=== PATIENT | female | born 1975 | race Caucasian/White ===

== ENCOUNTER 2016-10-03 11:32 | Emergency (ER) | payer OTHER ==
[2016-10-03] MEDS ORDERED: NS 1,000 ML IV ONE ×2 (11:48→12:00)
[2016-10-03] MEDS ORDERED: KETOROLAC 30 MG/1 ML SDV IVP ONE (12:00)
--- NOTE | 2016-10-03 12:00 | EDPHY ---
H & P Time Seen by Provider: 10/03/16 11:48 HPI/ROS: CHIEF COMPLAINT: Fever, back pain, dysuria HISTORY OF PRESENT ILLNESS: Patient is a 41-year-old female with a history of interstitial cystitis and endometriosis who presents to the emergency department with multiple complaints. Her symptoms started this morning upon waking. She noticed bilateral back pain and bilateral groin pain. This is moderate. She states she developed a fever to 101.4. This improved by taking medication. She has had dysuria and frequency. She also describes urgency. No hematuria. No nausea or vomiting. REVIEW OF SYSTEMS: My complete review of systems is negative except as mentioned in the HPI. Past Medical/Surgical History: Includes interstitial cystitis, endometriosis Past surgical history: Hysterectomy this year Social history: The patient does not smoke Smoking Status: Never smoked Physical Exam: Vitals noted. 37.2, heart rate elevated 127. GENERAL: Well-appearing, in no acute distress, alert. HEENT: Eyes normal to inspection, normal pharynx, no signs of dehydration. NECK: No thyromegaly, no lymphadenopathy, supple. RESPIRATORY: Clear to auscultation bilaterally, no rales, rhonchi or wheezing. CVS: tachycardia with regular rhythm, no rubs, murmurs, or gallops. ABDOMEN: Soft, left lower quadrant and suprapubic tenderness to palpation with no rebound or guarding, nondistended, no organomegaly. BACK: Normal to inspection, no CVA tenderness. SKIN: Normal color, no rash, warm, dry. No pallor. EXTREMITIES: No pedal edema, no calf tenderness, no Homans sign or cords, no joint swelling. NEURO/PSYCH: Alert and oriented, normal mood and affect, normal motor sensory exam. Constitutional: Initial Vital Signs Temperature (C) 37.2 C 10/03/16 11:37 Heart Rate 127 H 10/03/16 11:37 Respiratory Rate 22 H 10/03/16 11:37 Blood Pressure 133/108 H 10/03/16 11:37 O2 Sat (%) 92 10/03/16 11:37 O2 Delivery Mode Room Air Allergies/Adverse Reactions: Sulfa (Sulfonamide Antibiotics) Allergy (Verified 10/03/16 11:36) Home Medications: Medication Instructions Recorded Amlodipine Besylate 10/03/16 Lexapro 10/03/16 Synthroid 10/03/16 Medical Decision Making - Diagnostics Imaging Results: Imaging Impressions Abdomen/Pelvis CT 10/03/16 12:43 Impression: 1. Left lower lobe pneumonia. 2. No nephrolithiasis or hydronephrosis. 3. Benign left adrenal cortical adenoma measuring 1.6 x 1.1 cm. 4. Small fat-containing periumbilical abdominal wall hernia. Attention: This CT examination is specifically designed to evaluate patients who are clinically suspected of having acute obstructive uropathy. This examination does not use radiographic contrast, and as such, provides only a limited evaluation of the abdomen, pelvis and retroperitoneum. If there is further clinical suspicion for pathological conditions other than obstructive uropathy, a complete CT evaluation of the abdomen and pelvis utilizing intravenous, oral, and rectal contrast should be considered. Findings and recommendations discussed with Emergency Department physician, Sameera Gaston at 1330 hour, 10/03/2016. Final report concurs with initial preliminary interpretation. Chest X-Ray 10/03/16 13:34 Impression: Mild peribronchial thickening suggesting airways disease/bronchitis. ED Course/Re-evaluation: In the emergency department I discussed possible etiologies with the patient. I answered all her questions. IV was placed. Laboratory studies were obtained. Patient was given Toradol 30 mg IV and Pyridium 200 mg orally. [place] [id number]. Her chemistry was unremarkable. Patient's UA showed 3-5 red cells. No white cells. A CT of the abdomen pelvis was ordered. On recheck the patient continued to have some mild bilateral flank discomfort. She was given fentanyl 50 mcg IV. Abdominal pelvis CT: Please refer the dictated report by the radiologist. I discussed case with Dr. Davis. He states the patient may have a left lower lobe infiltrate. He recommended chest x-ray. I discussed the findings with the patient. I answered her questions. Chest x-ray: Please refer the dictated report. No acute pneumonia noted I discussed the findings with the patient. It is unclear the exact etiology of the patient's symptoms at this time. I discussed treat the patient for both urinary symptoms as well as pneumonia. It is noted that her UA was unremarkable except for a few red cells. After discussion, the patient states that she frequently has symptoms such as this from her IC. She does not want to take a fluoroquinolone. She would like treatment for the finding on her CT scan. Because of this she will be given azithromycin. Discussed the lack of clarity her diagnosis. She will follow up with Dr. Moyer in 1-2 days. She was given warnings prior to leaving. She will return with worsening symptoms. Differential Diagnosis: My differential includes but is not limited to pyelonephritis, urinary tract infection, cystitis, ovarian cyst, ovarian torsion, small-bowel obstruction, perforation, diverticulitis - Data Points Laboratory Results: Laboratory Results 10/03/16 11:50 10/03/16 11:50 10/03/16 10/03/16 10/03/16 11:50 11:50 11:45 WBC 15.78 10^3/uL H 10^3/uL (3.80-9.50) RBC 5.29 10^6/uL 10^6/uL (4.18-5.33) Hgb 12.6 g/dL g/dL (12.6-16.3) Hct 39.4 % % (38.0-47.0) MCV 74.5 fL L fL (81.5-99.8) MCH 23.8 pg L pg (27.9-34.1) MCHC 32.0 g/dL L g/dL (32.4-36.7) RDW 15.7 % H % (11.5-15.2) Plt Count 275 10^3/uL 10^3/uL (150-400) MPV 10.2 fL fL (8.7-11.7) Neut % (Auto) 87.1 % H % (39.3-74.2) Lymph % (Auto) 7.0 % L % (15.0-45.0) [place] % (Auto) 4.8 % % (4.5-13.0) Eos % (Auto) 0.2 % L % (0.6-7.6) Baso % (Auto) 0.3 % % (0.3-1.7) Nucleat RBC Rel Count 0.0 % % (0.0-0.2) Absolute Neuts (auto) 13.76 10^3/uL H 10^3/uL (1.70-6.50) Absolute Lymphs (auto) 1.10 10^3/uL 10^3/uL (1.00-3.00) Absolute Monos (auto) 0.76 10^3/uL 10^3/uL (0.30-0.80) Absolute Eos (auto) 0.03 10^3/uL 10^3/uL (0.03-0.40) Absolute Basos (auto) 0.04 10^3/uL 10^3/uL (0.02-0.10) Absolute Nucleated RBC 0.00 10^3/uL 10^3/uL (0-0.01) Immature Gran % 0.6 % % (0.0-1.1) Immature Gran # 0.09 10^3/uL 10^3/uL (0.00-0.10) Sodium 133 mEq/L L mEq/L (134-144) Potassium 4.5 mEq/L mEq/L (3.5-5.2) Chloride 96 mEq/L L mEq/L (97-110) Carbon Dioxide 23 mEq/l mEq/l (22-31) Anion Gap 14 mEq/L mEq/L (8-16) BUN 16 mg/dL mg/dL (7-23) Creatinine 0.8 mg/dL mg/dL (0.6-1.0) Estimated GFR > 60 Glucose 113 mg/dL H mg/dL (70-100) Calcium 9.5 mg/dL mg/dL (8.5-10.4) Urine Color PALE YELLOW Urine Appearance CLEAR Urine pH 7.0 (5.0-7.5) Ur Specific [place] 1.003 (1.002-1.030) Urine Protein NEGATIVE (NEGATIVE) Urine Ketones NEGATIVE (NEGATIVE) Urine Blood 1+ H (NEGATIVE) Urine Nitrate NEGATIVE (NEGATIVE) Urine Bilirubin NEGATIVE (NEGATIVE) Urine Urobilinogen NEGATIVE EU EU (0.2-1.0) Ur Leukocyte Esterase NEGATIVE (NEGATIVE) Urine RBC 3-5 /hpf H /hpf (0-3) Urine WBC 1-3 /hpf /hpf (0-3) Ur Epithelial Cells TRACE /lpf /lpf (NONE-1+) Urine Glucose NEGATIVE (NEGATIVE) Medications Given: Discontinued Medications Fentanyl (Sublimaze) 50 mcg IVP EDNOW ONE Stop: 10/03/16 13:17 Last Admin: 10/03/16 13:22 Dose: 50 mcg Sodium Chloride (Ns) 1,000 mls @ 0 mls/hr IV ONCE ONE PRN Reason: Wide Open Stop: 10/03/16 11:49 Last Admin: 10/03/16 11:57 Dose: 1,000 mls Ketorolac Tromethamine (Toradol) 30 mg IVP EDNOW ONE Stop: 10/03/16 12:01 Last Admin: 10/03/16 12:34 Dose: 30 mg Phenazopyridine HCl (Pyridium) 200 mg PO EDNOW ONE Stop: 10/03/16 12:02 Last Admin: 10/03/16 12:33 Dose: 200 mg Departure - Departure Disposition: Home, Routine, Self-Care Clinical Impression: Abdominal pain Qualifiers: Abdominal location: lower abdomen, unspecified Qualified Code(s): R10.30 - Lower abdominal pain, unspecified Pneumonia Qualifiers: Aspiration pneumonia type: unspecified Laterality: left Lung location: lower lobe of lung Condition: Good Instructions: Pneumonia (ED), Interstitial Cystitis (ED) Additional Instructions: Your CT scan showed a left lower lobe infiltrate in your lung. You been given azithromycin to treat this. You need close follow-up with Dr. Moyer. Return with increasing abdominal pain, persistent fever, vomiting, shortness of breath or any other concerns. You have a urine culture pending. Referrals: Corina Moyer MD [Primary Care Provider] - 1-2 days without fail
[2016-10-03] MEDS ORDERED: PHENAZOPYRIDINE HCL 200 MG TAB PO ONE (12:01)
[2016-10-03 12:06] LABS: % IMMATURE GRANULYOCYTES 0.6 % (0.0-1.1); ABSOLUTE IMMATURE GRANULOCYTES 0.09 10^3/uL (0.00-0.10); ADD DIFF? NO; ADD MORPH? NO; ADD SCAN? NO; ATYPICAL LYMPHOCYTE FLAG 0 (0-99); FRAGMENT RBC FLAG 0 (0-99); HEMATOCRIT 39.4 % (38.0-47.0); HEMOGLOBIN 12.6 g/dL (12.6-16.3); LEFT SHIFT FLG 0 (0-99); LIPEMIA HEMOLYSIS FLAG 80 (0-99); MEAN CELL HEMOGLOBIN 23.8 pg (27.9-34.1); MEAN CELL VOLUME 74.5 fL (81.5-99.8); MEAN PLATELET VOLUME 10.2 fL (8.7-11.7); PLATELET CLUMPS FLAG 10 (0-99); PLATELET COUNT 275 10^3/uL (150-400); RED BLOOD CELL COUNT 5.29 10^6/uL (4.18-5.33); RED CELL DISTRIBUTION WIDTH 15.7 % (11.5-15.2)
[2016-10-03 12:09] LABS: COLOR PALE YELLOW; LEUKOCYTE ESTERASE,URINE NEGATIVE (NEGATIVE); NITRITE,URINE NEGATIVE (NEGATIVE)
[2016-10-03 12:19] LABS: ANION GAP 14 mEq/L (8-16); CALCIUM 9.5 mg/dL (8.5-10.4); CARBON DIOXIDE 23 mEq/l (22-31); CHLORIDE 96 mEq/L (97-110); CREATININE 0.8 mg/dL (0.6-1.0); GLOMERULAR FILTRATION RATE > 60; GLUCOSE 113 mg/dL (70-100); POTASSIUM 4.5 mEq/L (3.5-5.2); SODIUM 133 mEq/L (134-144)
[2016-10-03] MEDS ORDERED: fentaNYL 100 MCG/2 ML INJ IVP ONE (13:16)
[2016-10-03 14:30] VITALS: RESP 18
[2016-10-03 14:53] VITALS: BP 140/59; PULSE 79; TEMP 99; O2SAT 94
[2016-10-03] MEDS ORDERED: AZITHROMYCIN 250 MG TAB PO ONE (14:53)
== END 2016-10-03 14:58 | disposition home or self-care (01) ==
DX: J18.9 Pneumonia, unspecified organism (principal); R10.30 Lower abdominal pain, unspecified; E86.9 Volume depletion, unspecified; Z90.710 Acquired absence of both cervix and uterus
CPT/HCPCS: 96374; J1885; J3010

== ENCOUNTER → 2016-10-05 | Outpatient (CLI) | payer OTHER ==
[~2016-10-05] MED LIST: IOPAMIDOL (ISOVUE 370) 100 ML BTL IV ONE
== END ==
LOC: FIMAGING 17:17
PROVIDERS: ATTEND Internal Medicine
CPT/HCPCS: Q9967

== ENCOUNTER → 2017-05-27 | Outpatient (CLI) | payer OTHER ==
[~2017-05-27] MED LIST changes: -IOPAMIDOL (ISOVUE 370) 100 ML BTL IV ONE; +IOPAMIDOL (ISOVUE-300) 100 ML BTL ONE
== END ==
LOC: FIMAGING 15:33
PROVIDERS: ATTEND Internal Medicine
DX: R91.8 Other nonspecific abnormal finding of lung field (principal)
CPT/HCPCS: Q9967

== ENCOUNTER → 2017-10-28 | Outpatient (CLI) | payer OTHER | LOC: BMCIMAGING 12:35 | PROVIDERS: ATTEND Nurse Practitioner Adult Health | DX: R00.0 Tachycardia, unspecified (principal); R06.02 Shortness of breath ==

== ENCOUNTER → 2017-12-19 | Outpatient (CLI) | payer OTHER | LOC: BRMIMAGING 14:53 | PROVIDERS: ATTEND Internal Medicine | DX: Z12.31 Encounter for screening mammogram for malignant neoplasm of breast (principal); Z80.3 Family history of malignant neoplasm of breast ==

== ENCOUNTER 2018-01-15 14:27 | Emergency (ER) | payer OTHER ==
[2018-01-15 14:34] VITALS: BP 133/67
--- NOTE | 2018-01-15 14:57 | EDPHY ---
H & P Stated Complaint: SOB chest tightness cough x 4 days Time Seen by Provider: 01/15/18 14:40 HPI/ROS: CHIEF COMPLAINT: Shortness of breath HISTORY OF PRESENT ILLNESS: The patient is a 42-year-old obese female with a history of thalassemia minor as well as obstructive sleep apnea who wears oxygen at night. She for the last several years has noticed shortness of breath around her menses or least the time she would have her menses. She has had hysterectomy and 1 of her ovaries removed for history of endometriosis. She has been worked up by her primary with cardiac and pulmonary tests which have been negative. She is not now being followed by a [facility]. They have not yet found any abnormalities. She reports that she has felt short of breath for the last 4-5 days. No fever. No cough. This is the expected timing. Her pulse oxygenation was 81% home early this morning. She was not wearing oxygen. She denies chest pain. Severity: Moderate Modifying factors: None REVIEW OF SYSTEMS: Constitutional: denies: chills, fever, recent illness, recent injury EENTM: denies: blurred vision, double vision, nose congestion Respiratory: See HPI Cardiac: denies: chest pain, irregular heart rate, lightheadedness, palpitations Gastrointestinal/Abdominal: denies: abdominal pain, diarrhea, nausea, vomiting, blood streaked stools Genitourinary: denies: dysuria, frequency, hematuria, pain Musculoskeletal: denies: joint pain, muscle pain Skin: denies: lesions, rash, jaundice, bruising Neurological: denies: headache, numbness, paresthesia, tingling, dizziness, weakness Hematologic/Lymphatic: denies: blood clots, easy bleeding, easy bruising Immunologic/allergic: denies: HIV/AIDS, transplant 10 systems reviewed and negative except as noted EXAM: GENERAL: Well-appearing, well-nourished and in no acute distress. HEAD: Atraumatic, normocephalic. EYES: Pupils equal round and reactive to light, extraocular movements intact, sclera anicteric, conjunctiva are normal. ENT: TMs normal, nares patent, oropharynx clear without exudates. Moist mucous membranes. NECK: Normal range of motion, supple without lymphadenopathy or JVD. LUNGS: Breath sounds clear to auscultation bilaterally and equal. No wheezes rales or rhonchi. HEART: Regular rate and rhythm without murmurs, rubs or gallops. ABDOMEN: Soft, nontender, normoactive bowel sounds. No guarding, no rebound. No masses appreciated. BACK: No CVA tenderness, no spinal tenderness, step-offs or deformities EXTREMITIES: Normal range of motion, no pitting or edema. No clubbing or cyanosis. NEUROLOGICAL: Cranial nerves II through XII grossly intact. Normal speech, normal gait. 5/5 strength, normal movement in all extremities, normal sensation , normal reflexes PSYCH: Normal mood, normal affect. SKIN: Warm, dry, normal turgor, no visible rashes or lesions. Source: Patient Exam Limitations: No limitations - Personal History LMP (Females 10-55): Hysterectomy - Medical/Surgical History Hx Asthma: No Hx Chronic Respiratory Disease: No Hx Diabetes: No Hx Cardiac Disease: No Hx Renal Disease: No Hx Cirrhosis: No Hx Alcoholism: No Hx HIV/AIDS: No Hx Splenectomy or Spleen Trauma: No Other PMH: interstitial cystitis. endometriosis - hysterectomy. htn. sleep apnea. Fell see me minor - Family History Significant Family History: No pertinent family hx - Social History Smoking Status: Never smoked Alcohol Use: Sober Drug Use: None Constitutional: Initial Vital Signs Temperature (C) 36.5 C 01/15/18 14:31 Heart Rate 78 01/15/18 14:31 Respiratory Rate 16 01/15/18 14:31 Blood Pressure 133/67 H 01/15/18 14:31 O2 Sat (%) 98 01/15/18 14:31 O2 Delivery Mode Room Air Allergies/Adverse Reactions: Sulfa (Sulfonamide Antibiotics) Allergy (Verified 10/03/16 11:36) Home Medications: Medication Instructions Recorded Amlodipine Besylate 10/03/16 Lexapro 10/03/16 Synthroid 10/03/16 Suboxone 2 mg-0.5 mg SL Film 01/15/18 Xanax 01/15/18 Medical Decision Making ED Course/Re-evaluation: The patient is now asymptomatic. She is saturating 98%. Her lung sounds are clear. She feels reassured. She suspects a component of anxiety. She has Xanax at home that she can take but was afraid to take it. We gave her road test here in the ER in her saturations remained well. We discussed workup including x-ray, lab work and cardiac test. She ultimately declined. She will follow up with her primary and the doctors at [facility]. We discussed indications for returning. Differential Diagnosis: Partial list of the Differential diagnosis considered include but were not limited to; hypoxia, anxiety and although unlikely based on the history and physical exam, I also considered PE, pneumonia, CHF, arrhythmia. I discussed these differential diagnoses and the plan with the patient as well as the usual and expected course. The patient understands that the diagnosis is provisional and that in medicine we are not always correct and that further workup is often warranted. Usual and customary warnings were given. All of the patient's questions were answered. The patient was instructed to return to the emergency department should the symptoms at all worsen or return, otherwise to followup with the physician as we discussed. Departure - Departure Disposition: Home, Routine, Self-Care Clinical Impression: Anxiety Dyspnea Qualifiers: Dyspnea type: unspecified Qualified Code(s): R06.00 - Dyspnea, unspecified Condition: Fair Instructions: Dyspnea (ED) Referrals: Corina Moyer MD [Primary Care Provider] - As per Instructions Lisa Morrison MA [Transit Planner] - 2-3 days, if not improved
== END 2018-01-15 15:13 | disposition home or self-care (01) ==
DX: F41.9 Anxiety disorder, unspecified (principal); R06.00 Dyspnea, unspecified; E66.9 Obesity, unspecified; G47.33 Obstructive sleep apnea (adult) (pediatric); D56.3 Thalassemia minor; Z90.710 Acquired absence of both cervix and uterus